=== PATIENT | female | born 1960 | race Caucasian/White ===

== ENCOUNTER → 2017-10-16 10:16 | Outpatient (CLI) | payer OTHER, SELFPAY ==
--- NOTE | 2017-10-16 | DI.MG.S_ITS ---
BILATERAL DIGITAL SCREENING MAMMOGRAM 3D/2D WITH CAD: 10/16/2017 CLINICAL: Routine screening. Family history of breast cancer. Comparison is made to exams dated: 10/02/2016 mammogram, 02/02/2015 mammogram, and 09/29/2013 mammogram - [facility]. The tissue of both breasts is extremely dense, which lowers the sensitivity of mammography. Current study was also evaluated with a Computer Aided Detection (CAD) system. There is irregular equal density architectural distortion with an indistinct margin in the left breast at 6 o'clock middle depth. No other significant masses, calcifications, or other findings are seen in either breast. IMPRESSION: INCOMPLETE: NEEDS ADDITIONAL IMAGING EVALUATION The irregular equal density architectural distortion in the left breast is indeterminate. Mediolateral and spot compression views as well as additional views with possible ultrasound are recommended. This exam was interpreted at Station ID: [id number]. NOTE: For mammograms, a report in lay terms will be sent to the patient. Approximately 15% of breast malignancies will not be visualized mammographically. In the management of a palpable breast mass, a negative mammogram must not discourage biopsy of a clinically suspicious lesion. Electronically Signed By: Juan Carlos schuler/alise:10/16/2017 14:57:10 letter sent: Additional Imaging Needed ACR BI-RADS Category 0: Incomplete 3340F
== END ==
PROVIDERS: Family Provider Family Medicine; PCP Family Medicine; Visit Provider Family Medicine
DX: Z12.31 Encounter for screening mammogram for malignant neoplasm of breast (principal); Z80.3 Family history of malignant neoplasm of breast; R92.8 Other abnormal and inconclusive findings on diagnostic imaging of breast
CPT/HCPCS: 77063; 77067

== ENCOUNTER → 2017-11-14 12:34 | Outpatient (CLI) | payer OTHER, SELFPAY ==
--- NOTE | 2017-11-14 | DI.US.S_ITS ---
LIMITED ULTRASOUND OF LEFT BREAST: 11/14/2017 CLINICAL: Patient returns today to evaluate a density in the left breast. Comparison is made to exams dated: 11/14/2017 mammogram, 10/16/2017 mammogram, 10/02/2016 mammogram, and 02/02/2015 mammogram - [facility]. Real-time ultrasound of the left breast 6 o'clock region was performed on the area of interest. No abnormalities were seen sonographically in the left breast. IMPRESSION: NEGATIVE There is no sonographic evidence of malignancy. There is no abnormality seen in the left breast to correspond with the mammography finding at 6 o'clock. A 1 year screening mammogram is recommended.(11/15/2018) Electronically Signed By: Juan Carlos schuler/alise:11/18/2017 13:44:02 letter sent: Normal Exam Ultrasound BI-RADS: 1 Negative
--- NOTE | 2017-11-14 | DI.MG.S_ITS ---
UNILATERAL LEFT DIGITAL DIAGNOSTIC MAMMOGRAM 3D/2D WITH ADDITIONAL VIEWS: 11/14/2017 CLINICAL: Additional evaluation requested from prior study. Comparison is made to exams dated: 10/16/2017 mammogram, 10/02/2016 mammogram, and 02/02/2015 mammogram - [facility]. The tissue of left breast is extremely dense, which lowers the sensitivity of mammography. There is irregular equal density architectural distortion with an indistinct margin in the left breast at 6 o'clock middle depth. This is less prominent. No other significant masses or calcifications are seen in the breast. IMPRESSION: INCOMPLETE: NEEDS ADDITIONAL IMAGING EVALUATION The irregular equal density architectural distortion in the left breast is indeterminate. An ultrasound is recommended. This exam was interpreted at Station ID: [id number]. NOTE: For mammograms, a report in lay terms will be sent to the patient. Approximately 15% of breast malignancies will not be visualized mammographically. In the management of a palpable breast mass, a negative mammogram must not discourage biopsy of a clinically suspicious lesion. Electronically Signed By: Juan Carlos schuler/alise:11/14/2017 13:33:27 letter sent: Need Ultrasound ACR BI-RADS Category 0: Incomplete 3340F
== END ==
PROVIDERS: PCP Family Medicine; Visit Provider Family Medicine
DX: R92.8 Other abnormal and inconclusive findings on diagnostic imaging of breast (principal)
CPT/HCPCS: 76642; 77065; G0279

== ENCOUNTER → 2019-09-14 15:32 | Outpatient (CLI) | payer OTHER, SELFPAY ==
[2019-09-16 01:31] LABS: COVID19 Sendout Not Detected (Not Detect)
== END ==
PROVIDERS: PCP Family Medicine; Visit Provider Physician Assistant
DX: Z01.812 Encounter for preprocedural laboratory examination (principal)
CPT/HCPCS: 87635

== ENCOUNTER 2019-09-17 07:32 | Day surgery (SDC) | payer OTHER, SELFPAY ==
[2019-09-17] MEDS: PROPARACAINE 0.5% OPHTH SOL 2 DROPS EYE-OP (07:51)
[2019-09-17] MEDS: CATARACT EYE COMPOUND (10 DROPS/SYRINGE) 3 DROPS EYE-OP (07:54)
[2019-09-17 07:57] VITALS: BP 144/81; PULSE 85; RESP 11; TEMP 36.5; O2SAT 99
[2019-09-17 08:01] VITALS: BMI 32.8
[2019-09-17] MEDS: diphenhydrAMINE 50 MG/ML VIAL (08:30)
--- NOTE | 2019-09-17 08:53 | SUR.PREOP ---
Continue to observe patient, denies any sensation of medication reaction.
--- NOTE | 2019-09-17 09:03 | PM.PREOP ---
Pre-operative Note COVID-19 COVID-19 status: Negative Result date/Date tested (Pos, Neg/Pending): 09/14/19 Interval Note History & Physical reviewed/Exam performed by Physician: Yes Changes to H&P: No
--- NOTE | 2019-09-17 09:10 | PM.PN.1 ---
Exam Vital Signs (past 8 hours): - 09/17/19 07:57 Temperature 97.7 F Pulse Rate 85 Respiratory Rate 11 L Blood Pressure 144/81 H Pulse Oximetry 99 Oxygen Delivery Method Room Air The patient was given a preoperative dilating drop that contains ketorolac. The patient reports a previous history of hives with ibuprofen. The patient was frequently monitored and denied flushing, sweats, difficulty breathing or rash. Assessment & Plan Assessment & Plan narrative: Although the patient does not have a distinct allergy to ketorolac she does have an allergy to ibuprofen. 25mg IV diphenhydramine was given, and the patient will be monitored closely.
[2019-09-17] MEDS: MOXIFLOXACIN INJ 5 MG/ML VIAL EYE-OP (09:27)
[2019-09-17] MEDS: PHENYLEPHRINE/LIDOCAINE VIAL (OR) 0.2 ML EYE-OP (09:27)
[2019-09-17] MEDS: BALANCED SALT IRRIG SOLN NO.2 500 ML, EPINEPHrine 1 MG IRR (09:27)
[2019-09-17] MEDS: CHONDROIDTIN/SOD HYALURONATE 1.05 ML SYRINGE INTRAOCULA (09:28)
[2019-09-17] MEDS: LIDOCAINE 2% INJ SDV 2 ML INJ (09:28)
[2019-09-17] MEDS: BALANCED SALT IRRIG SOLN NO.2 15 ML 5 ML IRR (09:29)
[2019-09-17] MEDS: TETRACAINE 0.5% OPHTH DROPS 4 ML 2 DROPS EYE-OP (09:29)
--- NOTE | 2019-09-17 09:44 | PM.OP.1 ---
Procedure & Clinicians Procedure: Cataract extraction with intraocular lens implant, left. Same procedure as scheduled: Yes Indications: Visually significant age related nuclear sclerosis. Surgeon: Charbel King Click Yes if Unassisted: Yes Anesthesia Type: MAC +/- Operative Notes Procedure in detail: The patient was brought to the operating suite. The correct patient, surgical site and lens were confirmed. 0.5 % tetracaine drops were placed in the left eye. The patient was prepped and draped in the typical sterile manner. A lid speculum was placed in the eye. 2% lidocaine was placed on the eye. A paracentesis port was created with a side-port blade. 0.1 mL of 1% preservative free lidocaine with phenylephrine was injected into the anterior chamber. Viscoelastic was injected into the anterior chamber. A 2.6mm keratome was used to create a clear corneal temporal incision. Cystotome and Utrata forceps were used to create a continuous curvilinear capsulorrhexis. Balanced salt solution was used to hydrodissect the nucleus. Phacoemulsification was used to remove the lens. The capsular bag was inflated with viscoelastic. A Romero ZCBOO 22.5D lens was inserted into the capsule. Viscoelastic was removed and the wound hydrated. The wound was found to be leak free and the eye was assessed to be at normal physiologic pressure. 0.1mL Moxifloxacin (5mg/mL) preservative free was injected into the anterior chamber. The lid speculum was removed and the patient left the operating room in excellent condition. Complications: none Post-operative Condition: stable Disposition: same day surgery
[2019-09-17] MEDS: ACETAMINOPHEN 325 MG TABLET 650 MG PO (09:58)
[2019-09-17 10:02] VITALS: BP 141/69; PULSE 70; RESP 16; TEMP 36.4; O2SAT 100
--- NOTE | 2019-09-17 10:59 | SUR.PHASEII ---
Physician requested to see patient before she leaves, awaiting physician, patient denies any needs
[2019-09-17 11:00] VITALS: BP 144/72; PULSE 64; RESP 16; TEMP 35.8; O2SAT 100
--- NOTE | 2019-09-17 11:13 | SUR.PHASEII ---
Dr. King came and saw patient, states patient may now discharge home.
== END 2019-09-17 11:13 | disposition home or self-care (01) ==
LOC: OR 07:35
PROVIDERS: PCP Family Medicine; Referring Provider Ophthalmology; Visit Provider Ophthalmology
PROC: (CPT 66984; principal; 2019-09-17 09:00)
DX: H25.12 Age-related nuclear cataract, left eye (principal); H11.152 Pinguecula, left eye
CPT/HCPCS: 66984; J0171; J1200; J2250

== ENCOUNTER → 2019-11-03 12:02 | Outpatient (CLI) | payer OTHER, SELFPAY ==
--- NOTE | 2019-11-03 12:28 | DI.MG.S_ITS ---
Patient Name: JONG FRENCH date: 1960 Sex: F Attending Physician: Zak Indications: Date: 11/03/2019 12:21 At the request of: GIGI MATHEW Procedure: MM screening mammo BI BILATERAL DIGITAL SCREENING MAMMOGRAM 3D/2D WITH CAD: 11/03/2019 CLINICAL: Routine screening. Family history of breast cancer. Comparison is made to exams dated: 11/14/2017 mammogram, 10/16/2017 mammogram, 10/02/2016 mammogram, 02/02/2015 mammogram, and 10/05/2013 mammogram - [facility]. The tissue of both breasts is extremely dense, which lowers the sensitivity of mammography. Current study was also evaluated with a Computer Aided Detection (CAD) system. No significant masses, calcifications, or other findings are seen in either breast. There has been no significant interval change. IMPRESSION: NEGATIVE There is no mammographic evidence of malignancy. A 1 year screening mammogram is recommended. This exam was interpreted at Station ID: [id number]. NOTE: For mammograms, a report in lay terms will be sent to the patient. Approximately 15% of breast malignancies will not be visualized mammographically. In the management of a palpable breast mass, a negative mammogram must not discourage biopsy of a clinically suspicious lesion. Electronically Signed By: Kyle santoyo/alise:11/03/2019 18:04:32 letter sent: Normal Exam ACR BI-RADS Category 1: Negative 3341F
== END ==
PROVIDERS: PCP Family Medicine; Referring Provider Family Medicine; Visit Provider Family Medicine
DX: Z12.31 Encounter for screening mammogram for malignant neoplasm of breast (principal); Z80.3 Family history of malignant neoplasm of breast
CPT/HCPCS: 77063; 77067

== ENCOUNTER → 2020-05-02 13:24 | Outpatient (CLI) | payer OTHER, SELFPAY ==
[2020-05-02] MEDS: COVID-19 VACC, Ad26(JANSSEN)/PF 0.5 ML IM (13:42)
== END ==
PROVIDERS: PCP Family Medicine; Visit Provider Internal Medicine
DX: Z23 Encounter for immunization (principal)
CPT/HCPCS: 0031A; 91303

== ENCOUNTER → 2021-01-03 07:37 | Outpatient (CLI) | payer OTHER, SELFPAY ==
--- NOTE | 2021-01-03 | DI.MG.S_ITS ---
BILATERAL DIGITAL SCREENING MAMMOGRAM 3D/2D WITH CAD: 01/03/2021 CLINICAL: Routine screening. Family history of breast cancer. Comparison is made to exams dated: 11/03/2019 mammogram, 11/14/2017 mammogram, 10/16/2017 mammogram, and 10/02/2016 mammogram - [facility]. The tissue of both breasts is extremely dense, which lowers the sensitivity of mammography. Current study was also evaluated with a Computer Aided Detection (CAD) system. No significant masses, calcifications, or other findings are seen in either breast. There has been no significant interval change. IMPRESSION: NEGATIVE There is no mammographic evidence of malignancy. A 1 year screening mammogram is recommended. This exam was interpreted at Station ID: [id number]. NOTE: For mammograms, a report in lay terms will be sent to the patient. Approximately 15% of breast malignancies will not be visualized mammographically. In the management of a palpable breast mass, a negative mammogram must not discourage biopsy of a clinically suspicious lesion. Electronically Signed By: Lawrence maurer/alise:01/04/2021 08:25:23 letter sent: Normal Exam ACR BI-RADS Category 1: Negative 3341F
== END ==
PROVIDERS: PCP Family Medicine; Referring Provider Family Medicine; Visit Provider Family Medicine
DX: Z12.31 Encounter for screening mammogram for malignant neoplasm of breast (principal); Z80.3 Family history of malignant neoplasm of breast
CPT/HCPCS: 77063; 77067

== ENCOUNTER → 2022-01-16 14:26 | Outpatient (CLI) | payer OTHER, SELFPAY ==
--- NOTE | 2022-01-16 14:27 | DI.MG.S_ITS ---
BILATERAL DIGITAL SCREENING MAMMOGRAM 3D/2D WITH CAD: 01/16/2022 CLINICAL: Routine screening. Family history of breast cancer. Comparison is made to exams dated: 01/03/2021 mammogram, 11/03/2019 mammogram, and 10/16/2017 mammogram - [facility]. Both breasts are extremely dense, which lowers the sensitivity of mammography (category d />75% glandular tissue). Current study was also evaluated with a Computer Aided Detection (CAD) system. No significant masses, calcifications, or other findings are seen in either breast. There has been no significant interval change. IMPRESSION: NEGATIVE There is no mammographic evidence of malignancy. A 1 year screening mammogram is recommended. Based on Tyrer-Cuzick model (a risk assessment model), the patient's lifetime risk is 32.6% and her 10 year risk is 15.9%. If a patient has an elevated risk, a more comprehensive evaluation should be considered and/or a referral to a genetic counselor. The [place] [employer], [employer], and NCCN Guidelines advise the consideration of Breast MRI as an adjunct to screening mammography in patients whose Lifetime risk to develop breast cancer is 20% or higher. This exam was interpreted at Station ID: [id number]. NOTE: For mammograms, a report in lay terms will be sent to the patient. Approximately 15% of breast malignancies will not be visualized mammographically. In the management of a palpable breast mass, a negative mammogram must not discourage biopsy of a clinically suspicious lesion. Electronically Signed By: Lawrence maurer/alise:01/17/2022 09:10:53 letter sent: Normal Exam ACR BI-RADS Category 1: Negative 3341F
== END ==
PROVIDERS: PCP Family Medicine; Referring Provider Family Medicine; Visit Provider Family Medicine
DX: Z12.31 Encounter for screening mammogram for malignant neoplasm of breast (principal); Z80.3 Family history of malignant neoplasm of breast
CPT/HCPCS: 77063; 77067

== ENCOUNTER → 2022-02-26 08:09 | Outpatient (CLI) | payer OTHER, SELFPAY ==
--- NOTE | 2022-02-26 | DI.ECHO.S_ITS ---
[facility] +---------+ : : [address] [address] : : : : [id number] : : : : Phone: [phone]---------+ Echocardiogram Report + + :Name: JONG FRENCH Study Date: 02/26/2022 Height: 62 in : :[facility] ReadingLocation: Weight: 185 lb : : Gender: Female BSA: 1.8 m2 : :: 1960 Age: 62 yrs BP: 131/74 mmHg: :Reason For Study: CHEST PAIN : :Ordering Physician: QUINCY, : :GIGI Performed By: Susan Bach : :Referring: GIGI MATHEW : + + Interpretation Summary Normal echo study. Procedure: A two-dimensional transthoracic echocardiogram with color flow and Doppler was performed. The study quality was technically adequate. There is no prior echocardiogram noted for this patient. The patient was in sinus rhythm with heart rates between 61-74 bpm during the exam. Left Ventricle: The left ventricle appears normal in size, wall thickness, and systolic function without any focal wall motion abnormalities. The ejection fraction is estimated to be 60-65%. Right Ventricle: The right ventricle is normal in size and function. Atria: The left atrial size is normal. Right atrial size is normal. There is no Doppler evidence for an interatrial shunt. Mitral Valve: The mitral valve is normal in structure and function. There is trace mitral regurgitation. Aortic Valve: The aortic valve is trileaflet. The aortic valve opens well. There is no aortic valve stenosis. No aortic regurgitation is present. Tricuspid Valve: The tricuspid valve is normal in structure and function. There is trace tricuspid regurgitation. Pulmonic Valve: The pulmonic valve leaflets are thin and pliable; valve motion is normal. There is mild pulmonic regurgitation. Great Vessels: The aortic root is normal size. The dimensions of the ascending aorta are normal. The IVC is of normal diameter and collapses greater than 50% with a sniff. This suggests a low right atrial pressure of 3 mm Hg. Pericardium/ Pleura There is no pericardial effusion. There is no pleural effusion. MMode/2D Measurements & Calculations LVIDd: 5.2 cm LVOT diam: 2.0 cm LVIDs: 3.2 cm Ao root diam: 2.8 cm FS: 38.4 % asc Aorta Diam: 3.1 cm EPSS: 0.73 cm Ao Arch Diam (Prox Trans): 2.9 cm IVSd: 0.71 cm LVPWd: 0.88 cm LV price. diameter/BSA (cm/m^2): 2.8 LV sys. diameter/BSA (cm/m^2): 1.7 LA A2 area: 19.6 cm2 RA long axis: 5.5 cm LA A4 area: 18.9 cm2 RA area: 14.7 cm2 LA length (vol): 5.3 cm RA vol: 33.6 ml LA vol: 58.9 ml RA : 18.2 ml/m2 LA vol index: 31.9 ml/m2 IVC diam: 1.3 cm RVD1 (basal): 3.1 cm RVD2 (mid): 2.7 cm TAPSE: 2.0 cm Doppler Measurements & Calculations Ao V2 max: 137.0 cm/sec LVOT Max Sae: 78.6 cm/sec Ao V2 mean: 95.1 cm/sec LV V1 max P.5 mmHg Ao max P.5 mmHg LV V1 VTI: 20.8 cm Ao mean P.1 mmHg RYAN(I,D): 2.0 cm2 Ao V2 VTI: 33.0 cm RYAN(V,D): 1.8 cm2 sev ratio: 0.63 RYAN indexed to BSA (cm^2/m^2): 1.1 MV E max sae: 62.4 cm/sec PA V2 max: 84.2 cm/sec MV A max sae: 69.9 cm/sec PA V2 mean: 62.0 cm/sec MV E/A: 0.89 PA mean P.7 mmHg Med Peak E' Sae: 6.7 cm/sec PA pr(Accel): 10.5 mmHg E/E' med: 9.2 Lat Peak E' Sae: 7.1 cm/sec E/E' lat: 8.8 E/e' average: 9.0 MV dec time: 0.28 sec SV(LVOT): 65.1 ml Electronically signed by: Mae Jackson on Reading Physician:02/26/2022 10:24 AM
[2022-02-26 08:57] LABS: COVID19 -Nasal RAPID Negative (Negative)
--- NOTE | 2022-02-26 17:47 | DI.NM.S_ITS ---
DATE OF SERVICE: 02/26/2022 PROCEDURE: Exercise perfusion study. INDICATION: Chest pain, underlying hypertension hyperlipidemia. RADIOPHARMACEUTICAL: 25.4 millicurie technetium-99m Myoview IV was injected at stress and 12.7 millicurie technetium-99m Myoview IV was injected at rest. CARDIAC STRESS: The patient underwent exercise perfusion study under the supervision of an attending staff. The patient walked on Smith protocol for 6 minutes and 01 seconds, achieved 92 percent of target heart rate. Baseline blood pressure 140/84 mmHg. Peak blood pressure 190/70 mmHg. Baseline rhythm was sinus. During stress, some nonspecific ST-T changes seen. Rare PVCs. No chest pain or anginal symptoms. The patient felt fatigue and some dyspnea. RAW DATA: There is increased subdiaphragmatic activity, as well as large breast shadow seen. GATED STUDY: Resting LV ejection fraction 76 and stress LV ejection fraction 77 percent. Resting end-diastolic volume 91 mL. No significant wall motion abnormalities. TID ratio 1.0, which is within normal limits. Lung/heart ratio 0.40 which is within normal limits. MYOCARDIAL PERFUSION SCAN: Stress supine, resting supine and stress prone images were compared to each other. Stress supine and resting supine images revealed small to moderate size, small to moderately decreased perfusion of distal anterior wall, anteroapex and distal anteroseptum, which got completely resolved during prone images, suggestive of breast tissue attenuation artifact. No obvious ischemia or infarction. CONCLUSION: This is a normal myocardial perfusion study with evidence of breast tissue attenuation artifact, which got resolved during stress prone images. Diminished exercise tolerance. Functional aerobic impairment positive 7 percent. The patient achieved 7 metabolic equivalents of workload. Normal hemodynamic response. No convincing ischemic electrocardiographic changes. Rare premature ventricular contractions. Overall, low-risk myocardial perfusion scan. Orville Sakina - CURT/luis/navdeep doc#: [id number]/job#: [id number] dd: 02/26/2022 16:35:00 dt: 02/26/2022 17:40:00 DICTATING MD/COPIES TO: Maria R Darden MD COPIES MNE: DENIS;
== END ==
PROVIDERS: PCP Family Medicine; Referring Provider Family Medicine; Visit Provider Family Medicine
DX: R07.89 Other chest pain (principal); R03.0 Elevated blood-pressure reading, without diagnosis of hypertension; E78.5 Hyperlipidemia, unspecified; I37.1 Nonrheumatic pulmonary valve insufficiency; Z20.822 Contact with and (suspected) exposure to COVID-19
CPT/HCPCS: 78452; 87635; 93017; 93306; A9502

== ENCOUNTER → 2022-04-11 15:15 | Outpatient (CLI) | payer OTHER, SELFPAY ==
--- NOTE | 2022-04-11 15:31 | DIET.CONS ---
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 Lives with , daughter and halftime with grandkids 10 and 7yo. Pt has read several books and feels advice is all over the place. Tried very low carb diet but could not stick to it. Ended up overeating [place] candy. Desires plan that is reasonable to follow and that she can stick to. Food Recall: wakes 6am, feels rested B: black tea with 2 tsp agave nectar an hour later would eat steel cut oatmeal with tsp brown sugar or sourdough waffles with light butter, egg/potato/veggie scramble or yogurt (low fat mohawk yogurt) Sn: not usually-maybe half an apple or whole L: leftovers (pasta, potato), soups ac with pasta or Premier Protein with berries added Sn: sugary thing (chocolate Reeces or cookies- oreos) D: meat with baked potatoes, salads, casseroles and soups, spaghetti, mac and cheese if kids are around Sn: sweets after dinner no etoh intake Iced tea with splenda sometimes diet soda Physical Activity: walk dogs every morning for 30 minutes work in yard quite a bit Diagnosis: altered nutrition related laboratory values (A1c, LDL, cholesterol) r/t food and nutrition related knowledge deficit and genetics aeb A1c 6.5%, LDL 148 (H), cholesterol 219 (H), diet recall revealing high CHO intake not consistent with carb consistent diet/high fiber diet, family history of diabetes and hyperlipidemia.? Intervention:? 1. Educated pt on pre-diabetes/diabetes and how it impacts our bodies using food examples and diagram.? 2. Discussed how exercise and consistent intake of CHO can balance BG levels throughout day. Recc 10 minute low intensity exercise after eating. 3. Educated pt on carb counting and label reading. Recc 30-45 g CHO (2-3 CHO choices) at meals and 15 g CHO (1 CHO choice) at snacks. Collaborated on meal and snack ideas.? 4. Discussed the benefits of fiber on BG and cholesterol levels. Collaborated on ways to increase fiber in diet using fiber handout. Recc 25 g fiber/day.? 5. Educated pt on stevia chocolates being a good alternative for an indulgence. EER: 30-45g CHO/meal, 15g CHO at snacks, 21g fiber/d Monitoring/Evaluations: pt will call to f/u after next set labs Electronically Signed by: Leni Horton 04/11/22 15:31 Clinical Dietitian [address] [address]
== END ==
PROVIDERS: Absent Provider Family Medicine; Family Provider Family Medicine; PCP Family Medicine; Referring Provider Family Medicine; Visit Provider Family Medicine
DX: R73.03 Prediabetes (principal); E78.5 Hyperlipidemia, unspecified; Z83.3 Family history of diabetes mellitus; Z71.3 Dietary counseling and surveillance
CPT/HCPCS: 97802

== ENCOUNTER 2022-10-15 10:38 | Emergency (ER) | payer OTHER, SELFPAY ==
[2022-10-15 10:43] VITALS: BP 164/77; PULSE 71; RESP 16; TEMP 36.9; O2SAT 99; BMI 27.4
--- NOTE | 2022-10-15 10:46 | ED_ITS ---
HPI - General Adult General Chief complaint: Dizziness Stated complaint: Dizziness, N/V since 0200 Time Seen by Provider: 10/15/22 10:43 Source: patient Limitations: no limitations History of Present Illness HPI narrative: Patient is a 62-year-old female. Is here for evaluation of dizziness and nausea and vomiting since 0200 hours this morning. States that it woke her from sleep. No headache. No sore throat. No neurologic symptoms in upper and lower extremities. She did have some ringing in her ears yesterday but nothing this morning. States that every time she opens her eyes she feels like the room is spinning. Related Data Home Medications Medication Instructions Recorded Confirmed CHOLECALCIFEROL (VITAMIN D3) 2,000 mg PO Q DAY ##0 07/04/09 03/07/20 (Vitamin D3) Cetirizine Hydrochloride (Zyrtec) 10 mg PO Q DAY ##0 07/04/09 03/07/20 [ANDREW RED FISH OIL] 1 cap PO Q DAY ##0 07/04/09 03/07/20 multivitamin 1 tab PO DAILY 09/17/19 03/07/20 Previous Rx's Medication Instructions Recorded estradiol 0.01% (0.1 mg/gram) 0.5 g vaginal DAILY #42.5 grams 03/07/20 vaginal cream (Estrace) meclizine 25 mg tablet 25 mg PO BID PRN dizziness #10 tabs 10/15/22 ondansetron 4 mg disintegrating 4 mg PO Q6H PRN nausea and 10/15/22 tablet vomiting #10 tabs Allergies Allergy/AdvReac Type Severity Reaction Status Date / Time NSAIDS (Non-Steroidal Allergy Intermediate Hive & Verified 03/07/20 13:55 Anti-Inflamma swelling Review of Systems Constitutional Constitutional: Reports system reviewed and no additional complaints, except as documented ENT Ears, Nose, Mouth, and Throat: Reports system reviewed and no additional complaints, except as documented Gastrointestinal Gastrointestinal: Reports system reviewed and no additional complaints, except as documented Integumentary/Breasts Skin/Breast: Reports system reviewed and no additional complaints, except as documented Neurologic Neurologic: Reports system reviewed and no additional complaints, except as documented Hematologic/Lymphatic On Anticoagulants: No Patient History Social History household members: spouse Smoking Status: Never smoker alcohol intake: current Smoking Status: Never smoker alcohol intake frequency: holidays/special occasions only Substance Use Type: crack/cocaine Exam Initial Vital Signs Initial Vital Signs: Vital Signs Temperature 98.4 F 10/15/22 10:43 Pulse Rate 71 10/15/22 10:43 Respiratory Rate 16 10/15/22 10:43 Blood Pressure 164/77 H 10/15/22 10:43 Pulse Oximetry 99 10/15/22 10:43 Oxygen Delivery Method Room Air 10/15/22 10:43 Const General: cooperative Resp Effort & Inspection: normal respiratory effort Cardio Rate: regular rate Skin General: no rashes or lesions noted Neuro Cognition: normal cognition Speech: speech normal Other: Patient with reproduction of symptoms with turning her head to the right. Extrem Other: No gross deformities Scores GCS Iggy coma scale eye opening: Spontaneous Iggy coma scale verbal response: Orientated Mildred coma scale motor response: Obey commands Mildred coma scale total score: 15 Course Orders Ordered: ED Orders 10/15/22 10:40 Complete Blood Count AUTO DIFF Stat Comprehensive Metabolic Panel Stat Lipase Stat Troponin & CK Cardiac Panel Stat 10/15/22 10:46 EKG-12 Lead Stat Discontinued Medications Sodium Chloride (Normal Saline 0.9%) 1,000 mls @ 1,000 mls/hr IV BOLUS ONE Stop: 10/15/22 11:44 Last Infusion: 10/15/22 12:12 Dose: 0 mls/hr Documented By: Admin: 10/15/22 11:12 Dose: 1,000 mls/hr Documented By: RUSLAN Meclizine HCl (Meclizine Hcl 12.5 Mg Tablet) 25 mg PO NOW ONE Stop: 10/15/22 10:46 Last Admin: 10/15/22 11:12 Dose: 25 mg Documented By: RUSLAN Ondansetron HCl (Ondansetron 4 Mg/2 Ml Inj) 4 mg IV NOW ONE Stop: 10/15/22 10:49 Last Admin: 10/15/22 11:13 Dose: Not Given Documented By: RUSLAN Vital Signs Vital signs: Vital Signs - 8 hr 10/15/22 10:43 10/15/22 11:30 10/15/22 12:30 Temperature 98.4 F Pulse Rate 71 62 64 Respiratory Rate 16 18 18 Blood Pressure 164/77 H 135/63 164/74 H Pulse Oximetry 99 97 99 Oxygen Delivery Method Room Air Room Air 10/15/22 12:00 Temperature Pulse Rate 71 Respiratory Rate 18 Blood Pressure 154/87 H Pulse Oximetry 99 Oxygen Delivery Method Room Air Medical Decision Making Lab Data 10/15/22 10:40 10/15/22 10:40 Labs: Lab Results 10/15/22 10/15/22 10/15/22 Range/Units 10:40 10:40 10:40 WBC 6.7 (4.5-11.0) X10^3/uL RBC 4.47 (4.0-5.2) X10^6/uL Hgb 13.7 (12.0-16.0) g/dL Hct 40.3 (36-46) % MCV 90.2 (80-100) fL MCH 30.7 (26-34) PG MCHC 34.1 (30-36) % RDW 13.8 (11.6-14.8) % Plt Count 302 (150-400) X10^3/uL Neut % (Auto) 82.0 H (50-75) % Lymph % (Auto) 14.0 L (25-40) % [place] % (Auto) 3.3 (3-14) % Eos % (Auto) 0.2 L (2-4) % Baso % (Auto) 0.5 (0-2) % Neut # (Auto) 5500 (2087-2245) /uL Lymph # (Auto) 900 L (6017-2487) /uL [place] # (Auto) 200 (0-900) /uL Eos # (Auto) 0 (0-450) /uL Baso # (Auto) 0 (0-100) /uL Sodium 133 L (137-145) mmol/L Potassium 5.1 (3.4-5.1) mmol/L Chloride 103 (98-107) mmol/L Carbon Dioxide 21 L (22-32) mmol/L BUN 13 (7-17) mg/dL Creatinine 0.61 (0.52-1.04) mg/dL Estimated GFR > 60 (>60) mL/min BUN/Creatinine Ratio 21.3 (6-22) Glucose 140 H (80-110) mg/dL Calcium 9.3 (8.4-10.2) mg/dL Total Bilirubin 1.1 (0.2-1.3) mg/dL AST 58 H (14-36) IU/L ALT 32 (<35) IU/L Alkaline Phosphatase 71 (38-126) U/L Total Creatine Kinase 140 H (30-135) U/L Troponin I 0.017 (0.01-0.034) ng/mL Total Protein 8.8 H (6.3-8.2) g/dL Albumin 5.0 (3.5-5.0) g/dL Globulin 3.8 (1.7-4.1) g/dL Albumin/Globulin Ratio 1.3 (1.0-2.8) Lipase 127 (23-300) U/L ECG Data Attestation: I personally reviewed and interpreted this ECG as follows: Interpretation: Sinus rhythm Ventricular rate is 65 Normal axis Normal QRS Normal QTC No ST T wave changes MDM Narrative Medical decision making narrative: Patient essentially has a positive Maybrook-Hallpike maneuver she has a reproduction of the symptoms when looking to the right. Her vertigo also woke her from sleep which is consistent with peripheral vertigo. I suspect this is peripheral vertigo most likely BPPV. I have low suspicion for CVA. Patient feels better after treatment here in the ER and she was able to walk to the bathroom. Will sent home with medications. She was given return precautions. She expressed understanding and agreement. Discharge Plan Departure Patient Disposition: Home Clinical Impression: Vertigo Instructions: DI for Vertigo Activity Restrictions/Additional Instructions: I recommend that you perform what is called the Mata maneuver. You can look this up online like we discussed. It can be helpful with trying to keep the v ertigo from coming back. I do recommend that you contact your primary doctor for a follow-up. Return to the emergency department for new or worsening symptoms. Prescriptions: New meclizine 25 mg tablet 25 mg PO BID PRN (Reason: dizziness) Qty: 10 0RF ondansetron 4 mg tablet,disintegrating 4 mg PO Q6H PRN (Reason: nausea and vomiting) Qty: 10 0RF No Action CHOLECALCIFEROL (VITAMIN D3) (Vitamin D3) 2,000 mg PO Q DAY Qty: 0 Cetirizine Hydrochloride (Zyrtec) 10 mg PO Q DAY Qty: 0 [ANDREW RED FISH OIL] 1 cap PO Q DAY Qty: 0 estradiol [Estrace] 0.01 % (0.1 mg/gram) cream 0.5 g vaginal DAILY Qty: 42.5 3RF Rx Instructions: 0.5 gm in vagina every day for 10 days and then twice a week multivitamin Tablet 1 tab PO DAILY Referrals: Kali Crespo MD [Primary Care Provider] - Stand Alone Forms: Patient Portal/API
[2022-10-15 10:56] LABS: Add Manual Diff / Slide Review NO; Basophils Absolute Auto 0 /uL (0-100); Basophils Percent Auto 0.5 % (0-2); Eosinophils Absolute Auto 0 /uL (0-450); Eosinophils Percent Auto 0.2 % (2-4); Hematocrit 40.3 % (36-46); Hemoglobin 13.7 g/dL (12.0-16.0); Lymphocytes Absolute Auto 900 /uL (1100-4500); Mean Corpuscular HGB Conc 34.1 % (30-36); Mean Corpuscular Hemoglobin 30.7 PG (26-34); Mean Corpuscular Volume 90.2 fL (80-100); Monocytes Absolute Auto 200 /uL (0-900); Monocytes Percent Auto 3.3 % (3-14); Neutrophils Absolute Auto 5500 /uL (1500-7000); Platelet Count 302 X10^3/uL (150-400); Red Blood Cell Count 4.47 X10^6/uL (4.0-5.2); Red Cell Distribution Width 13.8 % (11.6-14.8); White Blood Cell Count 6.7 X10^3/uL (4.5-11.0)
[2022-10-15 11:01] LABS: Alanine Aminotransferase 32 IU/L (<35); Albumin Globulin Ratio 1.3 (1.0-2.8); Alkaline Phosphatase 71 U/L (38-126); Aspartate Aminotransferase 58 IU/L (14-36); BUN Creatinine Ratio 21.3 (6-22); Bilirubin Total 1.1 mg/dL (0.2-1.3); Blood Urea Nitrogen 13 mg/dL (7-17); Calcium 9.3 mg/dL (8.4-10.2); Carbon Dioxide 21 mmol/L (22-32); Chloride 103 mmol/L (98-107); Creatine Kinase 140 U/L (30-135); Estimated Glomerular Filt Rate > 60 mL/min (>60); Globulin 3.8 g/dL (1.7-4.1); Glucose 140 mg/dL (80-110); HEMOLYSIS 223 (0-50); Lipase 127 U/L (23-300); Potassium 5.1 mmol/L (3.4-5.1); Sodium 133 mmol/L (137-145); Total Protein 8.8 g/dL (6.3-8.2)
[2022-10-15 11:12] LABS: Troponin I 0.017 ng/mL (0.01-0.034)
[2022-10-15] MEDS: MECLIZINE HCL 12.5 MG TABLET 25 MG PO (11:12)
[2022-10-15] MEDS: SODIUM CHLORIDE 0.9% 1,000 ML 1000 ML IV (11:12)
[2022-10-15 11:30] VITALS: BP 135/63; PULSE 62; RESP 18; O2SAT 97
[2022-10-15 12:00] VITALS: BP 154/87; PULSE 71; RESP 18; O2SAT 99
[2022-10-15 12:30] VITALS: BP 164/74; PULSE 64; RESP 18; O2SAT 99
[2022-10-15 13:00] VITALS: BP 174/84; PULSE 73; RESP 18; O2SAT 99
== END 2022-10-15 13:20 | disposition home or self-care (01) ==
PROVIDERS: Emergency Provider Emergency Medicine; Family Provider Family Medicine; PCP Family Medicine
DX: R42 Dizziness and giddiness (principal); R11.2 Nausea with vomiting, unspecified; R07.9 Chest pain, unspecified
CPT/HCPCS: 80053; 82550; 83690; 84484; 85025; 93005; 96360; 99284

== ENCOUNTER → 2023-05-16 11:23 | Outpatient (CLI) | payer MEDICARE, OTHER, SELFPAY ==
--- NOTE | 2023-05-16 11:28 | DI.MG.S_ITS ---
BILATERAL DIGITAL SCREENING MAMMOGRAM 3D/2D WITH CAD: 05/16/2023 CLINICAL: Routine screening. Family history of breast cancer. Comparison is made to exams dated: 01/16/2022 mammogram, 01/03/2021 mammogram, and 11/03/2019 mammogram - [facility]. Both breasts are extremely dense, which lowers the sensitivity of mammography (category d />75% glandular tissue). Current study was also evaluated with a Computer Aided Detection (CAD) system. No significant masses, calcifications, or other findings are seen in either breast. There has been no significant interval change. IMPRESSION: NEGATIVE There is no mammographic evidence of malignancy. A 1 year screening mammogram is recommended. Based on Tyrer-Cuzick model (a risk assessment model), the patient's lifetime risk is 30.6% and her 10 year risk is 15.8%. If a patient has an elevated risk, a more comprehensive evaluation should be considered and/or a referral to a genetic counselor. The [employer] [employer], [employer], and NCCN Guidelines advise the consideration of Breast MRI as an adjunct to screening mammography in patients whose Lifetime risk to develop breast cancer is 20% or higher. This exam was interpreted at Station ID: [id number]. NOTE: For mammograms, a report in lay terms will be sent to the patient. Approximately 15% of breast malignancies will not be visualized mammographically. In the management of a palpable breast mass, a negative mammogram must not discourage biopsy of a clinically suspicious lesion. Electronically Signed By: Jose sethi/alise:05/16/2023 13:27:04 letter sent: Normal Exam ACR BI-RADS Category 1: Negative 3341F
== END ==
PROVIDERS: Family Provider Family Medicine; PCP Family Medicine; Referring Provider Family Medicine; Visit Provider Family Medicine
DX: Z12.31 Encounter for screening mammogram for malignant neoplasm of breast (principal); Z80.3 Family history of malignant neoplasm of breast; R92.343 Mammographic extreme density, bilateral breasts
CPT/HCPCS: 77063; 77067

== ENCOUNTER → 2024-11-19 16:04 | Outpatient (CLI) | payer MEDICARE, OTHER, SELFPAY ==
--- NOTE | 2024-11-19 16:05 | DI.MG.S_ITS ---
MM screening mammo BI: 11/19/2024. BI-RADS: 1 CLINICAL: 64-year old female for bilateral screening mammogram. Tyrer-Cuzick lifetime risk of 12.7%. No personal or first-degree family history of breast cancer. Current reported family history of breast cancer: maternal grandmother and paternal grandmother. PRIOR EXAMS 05/16/2023, 01/16/2022, 01/03/2021, 11/03/2019. MAMMOGRAPHY TECHNIQUE: 2D and 3D (tomosynthesis) digital mammographic views obtained, with additional images as needed for full coverage. Current study was also evaluated with a Computer Aided Detection (CAD) system. DENSITY C. The breasts are heterogeneously dense, which may obscure small masses. MAMMOGRAPHY FINDINGS Bilateral: No suspicious mass, asymmetry, microcalcification, or other abnormality seen. No significant change from comparison. IMPRESSION: * No evidence of malignancy. RECOMMENDATIONS Bilateral * Annual screening mammography. OVERALL ASSESSMENT CATEGORY BI-RADS-1: Negative. The [employer] recommends annual screening mammography beginning at age 40 for women with average risk of breast cancer. ELECTRONICALLY SIGNED: Lawrence Calvin M.D. on 11/24/2024 at 11:09:02 AM PT Interpreting Station ID: [id number]
== END ==
LOC: MAMMO 16:04
PROVIDERS: Family Provider Family Medicine; PCP Family Medicine; Referring Provider Family Medicine; Visit Provider Family Medicine
DX: Z12.31 Encounter for screening mammogram for malignant neoplasm of breast (principal); R92.333 Mammographic heterogeneous density, bilateral breasts; Z80.3 Family history of malignant neoplasm of breast
CPT/HCPCS: 77063; 77067